=== PATIENT | female | born 1975 | race African-American/Black ===

== ENCOUNTER 2017-03-28 23:33 | Emergency (ER) | payer OTHER ==
[2017-03-28 23:42] VITALS: TEMP 97.8; BMI 38.4
[2017-03-29] MEDS ORDERED: SODIUM CHLORIDE 1,000 ML IV STA (00:28)
[2017-03-29] MEDS ORDERED: ACETAMINOPHEN 1000 MG/100 ML VIAL (NON FORMULARY) IVPB ONE (00:28)
--- NOTE | 2017-03-29 00:39 | PDOC ---
History of Present Illness - General History Source: Patient Exam Limitations: No Limitations - History of Present Illness Initial Comments: 03/29/17 00:42 The patient is a 42 year old female with a significant past medical history of HTN who presents to the ED with 3 days of right lower quadrant pain. Patient reports a gradual onset of waxing and waning right lower quadrant pain. She reports her right lower quadrant is progressively worsening and now radiates to her right flank and right lower back. She states her pain is sharp upon deep expiration and when laying down, otherwise patient describes the pain as a pressure-like sensation. She also reports urinary frequency and increase in gas associated with present symptoms. Patient reports her last menstrual period was 2 weeks ago. Denies fevers or chills. Denies dysuria or hematuria. Denies nausea, vomiting, or diarrhea. Denies any other symptoms. <Juice Wells - Last Filed: 03/29/17 00:42> - General History Source: Patient Exam Limitations: No Limitations <Andriy Marcano - Last Filed: 04/02/17 09:40> - General Chief Complaint: Pain, Acute Stated Complaint: ACUTE, PAIN Time Seen by Provider: 03/29/17 00:17 Past History <Juice Wells - Last Filed: 03/29/17 00:42> - Psycho/Social/Smoking Cessation Hx Suicidal Ideation: No Smoking History: Current every day smoker Have you smoked in the past 12 months: No Number of Cigarettes Smoked Daily: 5 Information on smoking cessation initiated: No Hx Alcohol Use: No Drug/Substance Use Hx: No <Andriy Marcano - Last Filed: 04/02/17 09:40> - Past Medical History Allergies/Adverse Reactions: Allergies Allergy/AdvReac Type Severity Reaction Status Date / Time No Known Allergies Allergy Verified 03/28/17 23:40 Home Medications: Ambulatory Orders Ibuprofen 800 mg PO TID #30 tablet 03/29/17 Review of Systems - Review of Systems Able to Perform ROS?: Yes Comments:: 03/29/17 00:42 GENERAL/CONSTITUTIONAL: No fever or chills. No weakness. HEAD, EYES, EARS, NOSE AND THROAT: No change in vision. No ear pain or discharge. No sore throat. CARDIOVASCULAR: No chest pain or shortness of breath. RESPIRATORY: No cough, wheezing, or hemoptysis. GASTROINTESTINAL: + abdominal pain, increased gas No nausea, vomiting, diarrhea or constipation. GENITOURINARY: + flank pain, frequency No dysuria. MUSCULOSKELETAL: + back pain. No joint or muscle swelling or pain. No neck pain. SKIN: No rash NEUROLOGIC: No headache, vertigo, loss of consciousness, or change in strength/ sensation. ENDOCRINE: No increased thirst. No abnormal weight change. HEMATOLOGIC/LYMPHATIC: No anemia, easy bleeding, or history of blood clots. ALLERGIC/IMMUNOLOGIC: No hives or skin allergy. All Other Systems: Reviewed and Negative <Juice Wells - Last Filed: 03/29/17 00:42> *Physical Exam - Vital Signs Last Vital Signs Temp Pulse Resp BP Pulse Ox 97.8 F 93 H 18 163/105 100 03/28/17 23:34 03/28/17 23:34 03/28/17 23:34 03/28/17 23:34 03/28/17 23:34 - Physical Exam Comments: 03/29/17 00:42 GENERAL: Awake, alert, and fully oriented, in no acute distress HEAD: No signs of trauma EYES: PERRLA, EOMI, sclera anicteric, conjunctiva clear ENT: Auricles normal inspection, hearing grossly normal, nares patent, oropharynx clear without exudates. Moist mucosa NECK: Normal ROM, supple, no lymphadenopathy, JVD, or masses LUNGS: Breath sounds equal, clear to auscultation bilaterally. No wheezes, and no crackles HEART: Regular rate and rhythm, normal S1 and S2, no murmurs, rubs or gallops ABDOMEN: + right lower quadrant tenderness to palpation. Soft, normoactive bowel sounds. No guarding, no rebound. No masses MUSCULOSKELETAL: +right CVA tenderness EXTREMITIES: Normal range of motion, no edema. No clubbing or cyanosis. No cords, erythema, or tenderness NEUROLOGICAL: Normal speech SKIN: Warm, Dry, normal turgor, no rashes or lesions noted. <Juice Wells - Last Filed: 03/29/17 00:42> - Vital Signs Last Vital Signs Temp Pulse Resp BP Pulse Ox 97.8 F 93 H 18 163/105 100 03/28/17 23:34 03/28/17 23:34 03/28/17 23:34 03/28/17 23:34 03/28/17 23:34 <Andriy Marcano - Last Filed: 04/02/17 09:40> ED Treatment Course - LABORATORY CBC & Chemistry Diagram: 03/29/17 01:15 03/29/17 01:15 - RADIOLOGY Radiology Studies Ordered: Category Date Time Status SPIRAL- RENAL-STONE CT [CT] Stat CT Scan 03/29/17 00:28 Ordered TRANSVAGINAL ULTRASOUND US [US] Stat Ultrasound 03/29/17 00:28 Ordered <Andriy Marcano - Last Filed: 04/02/17 09:40> Medical Decision Making - Medical Decision Making 03/29/17 00:32 A portion of this note was documented by scribe services under my direction. I have reviewed the details of the note, within reason, and agree with the documentation with the following case summary and management plan written by me. Patient treated in the ED. Nursing notes are reviewed and incorporated into the medical decision-making. Vital signs reviewed. Peripheral IV access obtained by the nurse, laboratory studies are drawn and sent, reviewed and interpreted by myself. Vital Signs Temp Pulse Resp BP Pulse Ox 97.8 F 93 H 18 163/105 100 03/28/17 23:34 03/28/17 23:34 03/28/17 23:34 03/28/17 23:34 03/28/17 23:34 42-year-old female with past medical history of hypertension presents with right flank pain and right lower quadrant pain for 3 days. Patient has been endorsing discomfort and pain. Reports urinary frequency but denies dysuria. Denies fevers or chills. Denies nausea or vomiting. Has not taken any pain medications. Patient does have history of intermittent abdominal pains in the setting of ovulation. Last menstrual period appears two weeks ago. Unsure that she has a history of ovarian cyst. Differential includes renal colic, ovarian cyst rupture, appendicitis. We'll obtain labs, transvaginal ultrasound, urine test, CAT scan and reassess. 03/29/17 02:26 CBC, BMP 03/29/17 01:15 03/29/17 01:15 CMP Sodium 140 mmol/L (136-145) 03/29/17 01:15 Potassium 3.7 mmol/L (3.5-5.1) 03/29/17 01:15 Chloride 105 mmol/L (98-107) 03/29/17 01:15 Carbon Dioxide 27 mmol/L (21-32) 03/29/17 01:15 Anion Gap 8 (8-16) 03/29/17 01:15 BUN 11 mg/dL (7-18) 03/29/17 01:15 Creatinine 0.8 mg/dL (0.55-1.02) 03/29/17 01:15 Creat Clearance w eGFR > 60 (>60) 03/29/17 01:15 Random Glucose 104 mg/dL (74-106) 03/29/17 01:15 Calcium 8.9 mg/dL (8.5-10.1) 03/29/17 01:15 Total Bilirubin 0.3 mg/dL (0.2-1.0) 03/29/17 01:15 AST 10 U/L (15-37) L 03/29/17 01:15 ALT 20 U/L (12-78) 03/29/17 01:15 Alkaline Phosphatase 86 U/L (45-117) 03/29/17 01:15 Total Protein 6.5 g/dl (6.4-8.2) 03/29/17 01:15 Albumin 3.3 g/dl (3.4-5.0) L 03/29/17 01:15 Ultrasound demonstrates a complex hemorrhagic cyst on the right. 03/29/17 02:37 Case signed out to Dr. Barron for further management. <Andriy Marcano - Last Filed: 04/02/17 09:40> *DC/Admit/Observation/Transfer - Attestations Scribe Attestion: 03/29/17 00:42 Documentation prepared by Juice Wells, acting as medical charge entry specialist for Andriy Marcano MD <Juice Wells - Last Filed: 03/29/17 00:42> <Andriy Marcano - Last Filed: 04/02/17 09:40> Diagnosis at time of Disposition: Hemorrhage of right ovary - Prescriptions Prescriptions: Ibuprofen 800 mg PO TID #30 tablet - Referrals Referrals: Maciel Cabral MD [Staff Physician] - - Patient Instructions Printed Discharge Instructions: DI for Ovarian Cyst Additional Instructions: Please follow up with your hand tapper for further evaluation and treatment.
[2017-03-29] MEDS ORDERED: ACETAMINOPHEN INJECTION 100 ML IVPB ONE (01:10)
[2017-03-29 01:31] LABS: EOSINOPHIL 1.5 % (0-4.5); MCH 28.3 pg (25.7-33.7); MCHC 33.1 g/dl (32.0-36.0); MEAN CELL VOLUME 85.7 fl (80-96); NEUTROPHILS 55.1 % (42.8-82.8); PLATELET COUNT 411 K/MM3 (134-434); RDW 16.8 % (11.6-15.6); WHITE BLOOD COUNT 7.2 K/mm3 (4.0-10.0)
[2017-03-29 01:54] LABS: ALBUMIN 3.3 g/dl (3.4-5.0); ANION GAP 8 (8-16); CALCIUM 8.9 mg/dL (8.5-10.1); CO2 27 mmol/L (21-32); CREATININE 0.8 mg/dL (0.55-1.02); GLUCOSE,RANDOM 104 mg/dL (74-106); SGOT/AST 10 U/L (15-37); SGPT/ALT 20 U/L (12-78)
[2017-03-29 01:56] LABS: ALK PHOS 86 U/L (45-117); BILIRUBIN,TOTAL 0.3 mg/dL (0.2-1.0); TOT PROT 6.5 g/dl (6.4-8.2)
[2017-03-29 02:39] LABS: URINE APPEARANCE SLCLOUDY; URINE BILIRUBIN NEGATIVE (NEGATIVE); URINE BLOOD NEGATIVE (NEGATIVE); URINE COLOR YELLOW; URINE GLUCOSE (UA) NEGATIVE (NEGATIVE); URINE KETONE NEGATIVE (NEGATIVE); URINE LEUK ESTERASE NEGATIVE (NEGATIVE); URINE NITRITE NEGATIVE (NEGATIVE); URINE PROTEIN NEGATIVE (NEGATIVE); URINE UROBILINOGEN NEGATIVE mg/dL (0.2-1.0)
--- NOTE | 2017-03-29 04:30 | PDOC ---
*Physical Exam - Vital Signs Last Vital Signs Temp Pulse Resp BP Pulse Ox 97.8 F 93 H 18 163/105 100 03/28/17 23:34 03/28/17 23:34 03/28/17 23:34 03/28/17 23:34 03/28/17 23:34 ED Treatment Course - LABORATORY CBC & Chemistry Diagram: 03/29/17 01:15 03/29/17 01:15 - ADDITIONAL ORDERS Additional order review: Laboratory Results 03/29/17 03/29/17 02:29 01:15 Sodium 140 Potassium 3.7 Chloride 105 Carbon Dioxide 27 Anion Gap 8 BUN 11 Creatinine 0.8 Creat Clearance w eGFR > 60 Random Glucose 104 Calcium 8.9 Total Bilirubin 0.3 AST 10 L ALT 20 Alkaline Phosphatase 86 Total Protein 6.5 Albumin 3.3 L Urine Color Yellow Urine Appearance Slcloudy Urine pH 5.0 Urine Protein Negative Urine Glucose (UA) Negative Urine Ketones Negative Urine Blood Negative Urine Nitrite Negative Urine Bilirubin Negative Urine Urobilinogen Negative Ur Leukocyte Esterase Negative Urine HCG, Qual Negative 03/29/17 01:15 RBC 3.99 MCV 85.7 MCHC 33.1 RDW 16.8 H MPV 8.0 Neutrophils % 55.1 Lymphocytes % 34.5 Monocytes % 7.9 Eosinophils % 1.5 Basophils % 1.0 - Medications Given in the ED: ED Medications Discontinued Medications Generic Name Dose Route Start Last Admin Trade Name Freq PRN Reason Stop Dose Admin Acetaminophen 1,000 mg 03/29/17 00:28 03/29/17 01:39 Ofirmev Injection - IVPB 03/29/17 00:29 1,000 mg ONCE ONE Administration Sodium Chloride 1,000 mls @ 1,000 mls/hr 03/29/17 00:28 03/29/17 01:37 Normal Saline - IV 03/29/17 01:27 1,000 mls/hr ASDIR STA Administration *DC/Admit/Observation/Transfer Diagnosis at time of Disposition: Hemorrhage of right ovary - Discharge Dispostion Disposition: HOME Condition at time of disposition: Stable Admit: No - Referrals Referrals: Maciel Cabral MD [Staff Physician] - - Patient Instructions Printed Discharge Instructions: DI for Ovarian Cyst Additional Instructions: Please follow up with your forensic structural engineer for further evaluation and treatment.
[2017-03-29 04:40] VITALS: BP 148/82; PULSE 85
== END 2017-03-29 04:44 | disposition home or self-care (01) ==
LOC: JER 23:33
PROC: 3E033NZ Introduction of Analgesics, Hypnotics, Sedatives into Peripheral Vein, Percutaneous Approach (ICD-10-PCS; principal; 2017-03-28)
PROC: 3E0337Z Introduction of Electrolytic and Water Balance Substance into Peripheral Vein, Percutaneous Approach (ICD-10-PCS; 2017-03-28)
DX: N83.201 Unspecified ovarian cyst, right side (principal); N83.8 Other noninflammatory disorders of ovary, fallopian tube and broad ligament; F17.210 Nicotine dependence, cigarettes, uncomplicated
CPT/HCPCS: 36415; 76830-TC; 80053; 81003; 84703; 85025; 87086; 99282-25

== ENCOUNTER 2023-03-06 17:23 | Emergency (ER) | payer OTHER ==
[2023-03-06 17:49] VITALS: BMI 39.6
[2023-03-06] MEDS ORDERED: SODIUM CHLORIDE 1,000 ML IV SCH (18:00)
[2023-03-06] MEDS ORDERED: ACETAMINOPHEN 1000 MG/100 ML BAG IVPB ONE (18:03)
[2023-03-06] MEDS ORDERED: ACETAMINOPHEN INJECTION 100 ML IVPB ONE (18:34)
[2023-03-06 18:46] LABS: EOS % 1.1 % (0-4.5); HEMATOCRIT 36.1 % (32.4-45.2); HEMOGLOBIN 11.7 GM/dL (10.7-15.3); LYMPH % 35.8 % (8-40); MCH 27.2 pg (25.7-33.7); MCHC 32.5 g/dl (32.0-36.0); MEAN CELL VOLUME 83.6 fl (80-96); MEAN PLT VOLUME 7.4 fl (7.5-11.1); NEUT % 55.1 % (42.8-82.8); PLATELET COUNT 440 10^3/uL (134-434); RBC 4.32 M/mm3 (3.60-5.2); RDW 16.7 % (11.6-15.6); WHITE BLOOD COUNT 6.5 K/mm3 (4.0-10.0)
[2023-03-06] MEDS ORDERED: LABETALOL HCL 5 MG/1 ML (100MG/20 ML VIAL) IVPUSH ONE ×2 (18:48→20:39)
[2023-03-06] MEDS ORDERED: LABETALOL HCL 20 MG/4 ML VIAL ONE ×2 (18:50→20:47)
[2023-03-06 18:55] LABS: INR 1.06 (0.83-1.09); PROTHROMBIN TIME (PATIENT) 12.3 SEC (9.7-13.0)
[2023-03-06 18:58] LABS: ACTIVATED PTT 29.9 SECONDS (25.2-36.5)
[2023-03-06 19:34] LABS: POTASSIUM 3.9 mmol/L (3.5-5.1)
[2023-03-06 19:36] LABS: ALBUMIN 3.2 g/dl (3.4-5.0)
[2023-03-06 19:37] LABS: BLOOD UREA NITROGEN 7.2 mg/dL (7-18)
[2023-03-06 19:41] LABS: TOT PROT 6.8 g/dl (6.4-8.2)
[2023-03-06 19:42] LABS: BILIRUBIN,TOTAL 0.2 mg/dL (0.2-1)
[2023-03-06] MEDS ORDERED: ASPIRIN 81 MG CHEWABLE TABLETS PO ONE (20:46)
[2023-03-06] MEDS ORDERED: ASPIRIN 81 MG CHEWABLE TABLETS ONE (20:47)
[2023-03-06 21:19] VITALS: RESP 15; TEMP 98.1
[2023-03-06] MEDS ORDERED: hydrALAZINE HCL 20 MG/ML VIAL IVPUSH ONE (21:58)
[2023-03-06] MEDS ORDERED: hydrALAZINE HCL 20 MG/ML VIAL ONE (22:00)
[2023-03-06 22:05] VITALS: BP 230/111; PULSE 81
== END 2023-03-06 22:20 | disposition short-term general hospital (02) ==
LOC: JER 17:23
PROC: 3E033NZ Introduction of Analgesics, Hypnotics, Sedatives into Peripheral Vein, Percutaneous Approach (ICD-10-PCS; principal; 2023-03-06)
PROC: 3E033GC Introduction of Other Therapeutic Substance into Peripheral Vein, Percutaneous Approach (ICD-10-PCS; 2023-03-06)
PROC: 3E033GC Introduction of Other Therapeutic Substance into Peripheral Vein, Percutaneous Approach (ICD-10-PCS; 2023-03-06)
PROC: 3E033GC Introduction of Other Therapeutic Substance into Peripheral Vein, Percutaneous Approach (ICD-10-PCS; 2023-03-06)
DX: R51.9 Headache, unspecified (principal); R42 Dizziness and giddiness; R53.1 Weakness; I63.9 Cerebral infarction, unspecified; Z20.822 Contact with and (suspected) exposure to COVID-19
CPT/HCPCS: 36415; 70450-TC; 70544-TC; 70551-TC; 71045-TC-FY; 80053; 80061; 82550; 82962; 83036; 84484; 85025; 85610; 85730; 86850; 86900; 86901; 87635; 93005; 93010; 99291